=== PATIENT | female | born 1945 | race Caucasian/White ===

== ENCOUNTER 2017-09-14 16:32 | Observation (INO) | payer OTHER, BC ==
[~2017-09-14] VITALS: Ht 177.8 cm; Wt 99.2 kg
[2017-09-14] MEDS ORDERED: ONDANSETRON INJ 2 MG/ML 2 ML VIAL IV STA (17:04)
[2017-09-14] MEDS ORDERED: SODIUM CHLORIDE 0.9% 1000ML 1,000 ML IV STA ×2 (17:04)
[2017-09-14] MEDS ORDERED: FLUT0.15 NAE (17:15)
[2017-09-14] MEDS ORDERED: OPTIRAY 320 IV PRN (17:15)
[2017-09-14] MEDS ORDERED: AMLO10CA PO (17:15)
[2017-09-14] MEDS ORDERED: MELO7.5T6 PO (17:15)
[2017-09-14] MEDS ORDERED: ROSU40TA PO (17:15)
[2017-09-14] MEDS ORDERED: ASPI81TA28 PO (17:15)
[2017-09-14] MEDS ORDERED: ERGO50002 PO (17:15)
--- NOTE | 2017-09-14 17:31 | DIAGNOSTIC IMAGING REPORT ---
CHEST ONE VIEW PORTABLE HISTORY: 72 years-old Female EVALUATE ALTERED MENTAL STATUS/WEAKNESS acute altered mental status COMPARISON: None available TECHNIQUE: Portable AP view of the chest FINDINGS: Cardiac silhouette is moderately enlarged. Atherosclerosis of the aorta. No pneumothorax or large pleural effusion. Linear subsegmental bibasilar opacities are present, left greater than right. Bones of the chest appear grossly intact. There are degenerative changes of the spine and shoulders. IMPRESSION: 1. Cardiomegaly without overt pulmonary edema. 2. Linear subsegmental bibasilar opacities suggest atelectasis. The above report was generated using voice recognition software. It may contain grammatical, syntax or spelling errors. Electronically signed by: Fabio pSencer M.D. 09/14/2017 5:29 PM Dictated Date/Time: 09/14/2017 5:28 PM
[2017-09-14 17:43] LABS: BASO % 0.3 %; BASO ABS # 0.02 K/uL (0-0.2); COMPLETE YES; EOS % 1.3 %; HEMATOCRIT 43.6 % (37-47); IG% 0.1 %; LYMPH % 10.2 %; LYMPH ABS # 0.73 K/uL (1.2-3.4); MEAN CELL VOLUME 94.2 fL (80-100); MEAN CORPUSCULAR HEMOGLOBIN 30.9 pg (25-34); MEAN CORPUSCULAR HGB CONC 32.8 g/dl (32-36); MEAN PLATELET VOLUME 9.8 fL (7.4-10.4); MONO % 5.4 %; NEUT % 82.7 %; PLATELET COUNT 227 K/uL (130-400); RED BLOOD COUNT 4.63 M/uL (4.2-5.4); WHITE BLOOD COUNT 7.19 K/uL (4.8-10.8)
[2017-09-14 18:18] LABS: ALT/SGPT 26 U/L (12-78); AST/SGOT 20 U/L (15-37); BLOOD UREA NITROGEN 37 mg/dl (7-18); BUN/CREATININE RATIO 27.3 (10-20); CALCIUM 8.9 mg/dl (8.5-10.1); CARBON DIOXIDE 26 mmol/L (21-32); CHLORIDE 107 mmol/L (98-107); CREATININE 1.34 mg/dl (0.60-1.20); GLUCOSE 104 mg/dl (70-99); POTASSIUM 3.7 mmol/L (3.5-5.1); SODIUM 141 mmol/L (136-145)
[2017-09-14 18:23] LABS: ALKALINE PHOSPHATASE 72 U/L (45-117)
[2017-09-14 18:34] LABS: URINE APPEARANCE CLEAR (CLEAR); URINE BILIRUBIN NEG (NEG); URINE COLOR DK YELLOW; URINE NITRITE NEG (NEG); URINE SPECIFIC GRAVITY 1.024 (1.000-1.030); UROBILINOGEN NEG (NEG)
[2017-09-14 18:38] LABS: MANUAL MICROSCOPIC REQUIRED? NO; REVIEW REQ? NO
--- NOTE | 2017-09-14 19:14 | DIAGNOSTIC IMAGING REPORT ---
ABDOMEN AND PELVIS CT WITH IV CONTRAST CT DOSE: 785.14 mGy.cm HISTORY: Acute generalized abdominal pain abd pain TECHNIQUE: Multiaxial CT images of the abdomen and pelvis were performed following the use of intravenous contrast. A dose lowering technique was utilized adhering to the principles of ALARA. COMPARISON STUDY: None. FINDINGS: Mild subsegmental bibasilar atelectasis. Partially imaged consolidation of the inferior segment lingula is noted also suggesting atelectasis. There is no pneumatosis or pneumoperitoneum identified. Imaged inferior cardiac chambers are unremarkable with coronary arterial calcifications noted. The liver, spleen, pancreas, gallbladder and left adrenal gland are unremarkable. Indeterminate 3.7 x 2.4 x 3.6 cm mildly heterogeneous soft tissue attenuating lesion of the right adrenal gland is noted which is mildly hypoattenuating centrally. Kidneys, ureters and urinary bladder are unremarkable. Small cystocele. Prior hysterectomy. Moderate atherosclerosis of the aorta. No bulky adenopathy. 7 mm phlebolith is noted within the left hemipelvis in close proximity to the adjacent left ureter. No bowel obstruction. There is mild circumferential wall thickening of the rectum. Fluid-filled loops of rectum and sigmoid colon are noted with scattered air-fluid levels. There is also mild wall thickening of the transverse colon without significant surrounding inflammatory stranding. The appendix is not clearly seen. No secondary signs of acute appendicitis. There are multiple fat filled ventral abdominal wall hernias. Infraumbilical abdominal wall hernia contains mesenteric fat and nonobstructed loops of small bowel, diastases measuring up to 3.5 x 6.7 cm. Small fat filled right inguinal hernia. Soft tissues are unremarkable. Bones appear to be mildly demineralized. Multilevel advanced degenerative changes of the spine. Degenerative changes also noted within the bilateral hips, left greater than right. Lumbar spine levoscoliosis. IMPRESSION: 1. Mild wall thickening of the transverse colon and rectum suggests colitis. The colon is diffusely fluid-filled suggesting diarrheal state. 2. No bowel obstruction. 3. Indeterminate heterogeneous soft tissue attenuating mass of the right adrenal gland measures up to 3.7 cm. This could be further evaluated with a CT adrenal protocol study if clinically indicated. 4. Multiple fat filled ventral abdominal wall hernias with an infraumbilical fat filled hernia also containing nonobstructed small bowel. 5. Prior hysterectomy with small cystocele. Electronically signed by: Fabio Spencer M.D. 09/14/2017 7:13 PM Dictated Date/Time: 09/14/2017 7:02 PM
[2017-09-14 20:01] LABS: MAGNESIUM 2.6 mg/dl (1.8-2.4)
[2017-09-14 20:11] LABS: PARTIAL THROMBOPLASTIN RATIO 0.8
[2017-09-14] MEDS ORDERED: HYDROmorphone INJ 0.5 MG/0.5 ML SYR IV PRN (21:00)
[2017-09-14] MEDS ORDERED: PROCHLORPERAZINE INJ 5 MG in SYRINGE 4 ML IV PRN (21:00)
[2017-09-14] MEDS ORDERED: FLUTICASONE PROPIONATE NA SPR 16 GM BTL NAE PRN (21:00)
[2017-09-14] MEDS ORDERED: NITROGLYCERIN 0.4 MG SL PER TAB CHARGE SL PRN (21:00)
[2017-09-14] MEDS ORDERED: TRAMADOL HCL 50 MG TAB PO PRN (21:00)
--- NOTE | 2017-09-14 21:00 | DIAGNOSTIC IMAGING REPORT ---
HEAD WITHOUT CONTRAST (CT) CLINICAL HISTORY: 72 years-old Female with syncope. Acute syncope TECHNIQUE: Multiple axial CT images of the head were obtained without contrast. A dose lowering technique was utilized adhering to the principles of ALARA. CT DOSE: 537.48 mGy.cm COMPARISON: None. FINDINGS: No acute intracranial hemorrhage, midline shift, intracranial mass, hydrocephalus, territorial ischemia or abnormal extra-axial collection. Mild brain atrophy. Opacified venous sinuses and arterial structures from recent arterially enhanced CT of the abdomen and pelvis. Ill-defined areas of low-attenuation within the subcortical and periventricular white matter of the cerebral hemispheres bilaterally suggest chronic microvascular ischemic changes. The calvarium is intact. The paranasal sinuses, mastoid air cells, and middle ear cavities are clear. IMPRESSION: No acute intracranial abnormality. The above report was generated using voice recognition software. It may contain grammatical, syntax or spelling errors. Electronically signed by: Fabio Spencer M.D. 09/14/2017 8:58 PM Dictated Date/Time: 09/14/2017 8:57 PM
[2017-09-14] MEDS ORDERED: IV FLUIDS COMPLETED PRN (21:15)
[2017-09-14 21:59] LABS: PROTHROMBIN TIME (PATIENT) 10.7 SECONDS (9.0-12.0)
[2017-09-14] MEDS ORDERED: LACTATED RINGER'S 1000ML 1,000 ML IV ONE (22:00)
[2017-09-14 22:05] VITALS: BP 159/76; PULSE 68; TEMP 36.9; O2SAT 91
--- NOTE | 2017-09-14 22:09 | EMERGENCY ROOM VISIT NOTE ---
History Report prepared by Zack: Maryellen Lazo Under the Supervision of: Dr. Fabian Serrato D.O. First contact with patient: 16:51 Chief Complaint: DIZZY History of Present Illness The patient is a 72 year old who presents to the Emergency Room with complaints of weakness beginning shortly prior to arrival. The patient states that she went out to eat and ate dessert, and states that she has not been having sugar recently. She reports that she suddenly began to get nauseous and that she thought she was going to have to throw up. She reports that this is common for her and that she then felt better shortly after going to the bathroom. The patient states that she began to get stomach cramps and had blurry vision. She reports that she felt as if there were "pins and needles all over her." Per family, the patient passed out, then woke up, and stated that she felt better. The patient also reports vomiting and having diarrhea, but denies having incontinence. She also denies chest pain and shortness of breath before the syncopal episode. The patient reports having problems with blood pressure lately and also palpitations. Her family states that the patient has been having episodes of dizziness over the last month. The patient also reports a history of pneumonia and being placed on breathing treatments, but has been feeling more normal in the last couple of weeks. The patient denies a history of seizures. Source of History: patient, family Onset: shortly prior to arrival Position: other (global) Quality: other (weakness ) Associated Symptoms: + vomiting, + abdominal pain (stomach cramps), + diarrhea, No chest pain, No SOB Review of Systems See HPI for pertinent positives & negatives. A total of 10 systems reviewed and were otherwise negative. Past Medical & Surgical Medical Problems: (1) History of blood pressure problems (2) Pneumonia (3) Syncope Family History No pertinent family history stated. Social History Smoking Status: Never Smoker Marital Status: Current/Historical Medications Scheduled Amlodipine/Benazepril (Lotrel 10MG/20MG), 1 CAP PO DAILY Aspirin (Aspirin Ec), 81 MG PO QAM Ergocalciferol (Drisdol), 50,000 UNITS PO WK Meloxicam (Mobic), 7.5 MG PO DAILY Rosuvastatin Calcium (Crestor), 40 MG PO DAILY Scheduled PRN Fluticasone Propionate (Nasal) (Flonase Allergy Relief), 1 SPRAY RICCARDO DAILY PRN for ALLERGIES Allergies Coded Allergies: Morphine and Related (Verified Adverse Reaction, Intermediate, NAUSEA, VOMITING, 09/14/17) Physical Exam Vital Signs Date Time Temp Pulse Resp B/P (MAP) Pulse Ox O2 Delivery O2 Flow Rate FiO2 09/14/17 21:39 68 16 145/71 93 09/14/17 21:15 71 18 92 09/14/17 21:01 155/80 09/14/17 21:00 69 15 92 09/14/17 20:56 74 150/73 78 148/72 84 170/75 09/14/17 19:11 36.7 66 18 135/68 94 Room Air 09/14/17 18:16 62 09/14/17 17:44 36.7 68 18 129/63 95 Room Air 75 137/64 82 150/64 09/14/17 17:43 95 Room Air 09/14/17 16:55 74 18 118/69 90 Room Air Physical Exam GENERAL: Sitting up in bed, alert, well appearing, well nourished, no distress, non-toxic EYE EXAM: normal conjunctiva. OROPHARYNX: no exudate, no erythema, lips, buccal mucosa, and tongue normal and mucous membranes are moist NECK: supple, no nuchal rigidity, no adenopathy, non-tender LUNGS: Clear to auscultation. Normal chest wall mechanics HEART: no murmurs, S1 normal and S2 normal ABDOMEN: abdomen soft, non-tender, normo-active bowel sounds, no masses, no rebound or guarding. BACK: Back is symmetrical on inspection and there is no deformity, no midline tenderness, no CVA tenderness. SKIN: no rashes and no bruising UPPER EXTREMITIES: upper extremities are grossly normal. LOWER EXTREMITIES: No pitting edema. NEURO EXAM: Normal sensorium, cranial nerves II-XII intact, normal speech, no weakness of arms, no weakness of legs. No drift. Finger to nose intact. Gross sensation intact. Medical Decision & Procedures ER Provider Diagnostic Interpretation: Radiology results as stated below per my review and the radiologist's interpretation: CHEST ONE VIEW PORTABLE HISTORY: 72 years-old Female EVALUATE ALTERED MENTAL STATUS/WEAKNESS acute altered mental status COMPARISON: None available TECHNIQUE: Portable AP view of the chest FINDINGS: Cardiac silhouette is moderately enlarged. Atherosclerosis of the aorta. No pneumothorax or large pleural effusion. Linear subsegmental bibasilar opacities are present, left greater than right. Bones of the chest appear grossly intact. There are degenerative changes of the spine and shoulders. IMPRESSION: 1. Cardiomegaly without overt pulmonary edema. 2. Linear subsegmental bibasilar opacities suggest atelectasis. The above report was generated using voice recognition software. It may contain grammatical, syntax or spelling errors. Electronically signed by: Fabio Spencer M.D. 09/14/2017 5:29 PM Dictated Date/Time: 09/14/2017 5:28 PM ABDOMEN AND PELVIS CT WITH IV CONTRAST CT DOSE: 785.14 mGy.cm HISTORY: Acute generalized abdominal pain abd pain TECHNIQUE: Multiaxial CT images of the abdomen and pelvis were performed following the use of intravenous contrast. A dose lowering technique was utilized adhering to the principles of ALARA. COMPARISON STUDY: None. FINDINGS: Mild subsegmental bibasilar atelectasis. Partially imaged consolidation of the inferior segment lingula is noted also suggesting atelectasis. There is no pneumatosis or pneumoperitoneum identified. Imaged inferior cardiac chambers are unremarkable with coronary arterial calcifications noted. The liver, spleen, pancreas, gallbladder and left adrenal gland are unremarkable. Indeterminate 3.7 x 2.4 x 3.6 cm mildly heterogeneous soft tissue attenuating lesion of the right adrenal gland is noted which is mildly hypoattenuating centrally. Kidneys, ureters and urinary bladder are unremarkable. Small cystocele. Prior hysterectomy. Moderate atherosclerosis of the aorta. No bulky adenopathy. 7 mm phlebolith is noted within the left hemipelvis in close proximity to the adjacent left ureter. No bowel obstruction. There is mild circumferential wall thickening of the rectum. Fluid-filled loops of rectum and sigmoid colon are noted with scattered air-fluid levels. There is also mild wall thickening of the transverse colon without significant surrounding inflammatory stranding. The appendix is not clearly seen. No secondary signs of acute appendicitis. There are multiple fat filled ventral abdominal wall hernias. Infraumbilical abdominal wall hernia contains mesenteric fat and nonobstructed loops of small bowel, diastases measuring up to 3.5 x 6.7 cm. Small fat filled right inguinal hernia. Soft tissues are unremarkable. Bones appear to be mildly demineralized. Multilevel advanced degenerative changes of the spine. Degenerative changes also noted within the bilateral hips, left greater than right. Lumbar spine levoscoliosis. IMPRESSION: 1. Mild wall thickening of the transverse colon and rectum suggests colitis. The colon is diffusely fluid-filled suggesting diarrheal state. 2. No bowel obstruction. 3. Indeterminate heterogeneous soft tissue attenuating mass of the right adrenal gland measures up to 3.7 cm. This could be further evaluated with a CT adrenal protocol study if clinically indicated. 4. Multiple fat filled ventral abdominal wall hernias with an infraumbilical fat filled hernia also containing nonobstructed small bowel. 5. Prior hysterectomy with small cystocele. Electronically signed by: Fabio Spencer M.D. 09/14/2017 7:13 PM Dictated Date/Time: 09/14/2017 7:02 PM Laboratory Results 09/14/17 17:30 Red Blood Count 4.63, Mean Corpuscular Volume 94.2, Mean Corpuscular Hemoglobin 30.9, Mean Corpuscular Hemoglobin Concent 32.8, Mean Platelet Volume 9.8, Neutrophils (%) (Auto) 82.7, Lymphocytes (%) (Auto) 10.2, Monocytes (%) (Auto) 5.4, Eosinophils (%) (Auto) 1.3, Basophils (%) (Auto) 0.3, Neutrophils # (Auto) 5.95, Lymphocytes # (Auto) 0.73, Monocytes # (Auto) 0.39, Eosinophils # (Auto) 0.09, Basophils # (Auto) 0.02 09/14/17 17:30 Test 09/14/17 17:30 09/14/17 18:10 White Blood Count 7.19 K/uL (4.8-10.8) Red Blood Count 4.63 M/uL (4.2-5.4) Hemoglobin 14.3 g/dL (12.0-16.0) Hematocrit 43.6 % (37-47) Mean Corpuscular Volume 94.2 fL (80-100) Mean Corpuscular Hemoglobin 30.9 pg (25-34) Mean Corpuscular Hemoglobin Concent 32.8 g/dl (32-36) Platelet Count 227 K/uL (130-400) Mean Platelet Volume 9.8 fL (7.4-10.4) Neutrophils (%) (Auto) 82.7 % Lymphocytes (%) (Auto) 10.2 % Monocytes (%) (Auto) 5.4 % Eosinophils (%) (Auto) 1.3 % Basophils (%) (Auto) 0.3 % Neutrophils # (Auto) 5.95 K/uL (1.4-6.5) Lymphocytes # (Auto) 0.73 K/uL (1.2-3.4) Monocytes # (Auto) 0.39 K/uL (0.11-0.59) Eosinophils # (Auto) 0.09 K/uL (0-0.5) Basophils # (Auto) 0.02 K/uL (0-0.2) RDW Standard Deviation 46.3 fL (36.4-46.3) RDW Coefficient of Variation 13.3 % (11.5-14.5) Immature Granulocyte % (Auto) 0.1 % Immature Granulocyte # (Auto) 0.01 K/uL (0.00-0.02) Activated Partial Thromboplast Time 21.7 SECONDS (21.0-31.0) Partial Thromboplastin Ratio 0.8 Anion Gap 8.0 mmol/L (3-11) Est Creatinine Clear Calc Drug Dose 48.4 ml/min Estimated GFR () 45.4 Estimated GFR (Non- 39.2 BUN/Creatinine Ratio 27.3 (10-20) Calcium Level 8.9 mg/dl (8.5-10.1) Magnesium Level 2.6 mg/dl (1.8-2.4) Total Bilirubin 0.4 mg/dl (0.2-1) Direct Bilirubin < 0.1 mg/dl (0-0.2) Aspartate Amino Transf (AST/SGOT) 20 U/L (15-37) Alanine Aminotransferase (ALT/SGPT) 26 U/L (12-78) Alkaline Phosphatase 72 U/L (45-117) Troponin I < 0.015 ng/ml (0-0.045) Total Protein 6.6 gm/dl (6.4-8.2) Albumin 3.6 gm/dl (3.4-5.0) Thyroid Stimulating Hormone (TSH) 2.220 uIu/ml (0.300-4.500) Urine Color DK YELLOW Urine Appearance CLEAR (CLEAR) Urine pH 5.0 (4.5-7.5) Urine Specific [place] 1.024 (1.000-1.030) Urine Protein NEG (NEG) Urine Glucose (UA) NEG (NEG) Urine Ketones TRACE (NEG) Urine Occult Blood NEG (NEG) Urine Nitrite NEG (NEG) Urine Bilirubin NEG (NEG) Urine Urobilinogen NEG (NEG) Urine Leukocyte Esterase NEG (NEG) Laboratory results per my review. Medications Administered Medications (Trade) Dose Ordered Sig/Ap Route Start Time Stop Time Status Last Admin Dose Admin Sodium Chloride 1,000 ml @ 999 mls/hr Q1H1M STAT IV 09/14/17 17:04 09/14/17 18:04 DC 09/14/17 17:56 999 MLS/HR Ondansetron HCl (Zofran Inj) 4 mg NOW STAT IV 09/14/17 17:04 09/14/17 17:06 DC 09/14/17 17:55 4 MG ECG Indication: weakness Rate (beats per minute): 70 Rhythm: sinus rhythm Findings: T-wave inversion (Lateral and high lateral ), other (normal axis, non -specific ST wave changes in lateral lead ) ED Course ED COURSE: Vital signs were reviewed and showed hypertension. The patients medical record was reviewed The above diagnostic studies were performed and reviewed. ED treatments and interventions as stated above. 1656: The patient was evaluated in room B5. A complete history and physical examination was performed. 1704:Ordered Sodium Chloride 1,000 ml @ 999 mls/hr IV, Zofran Inj 4 mg IV, Sodium Chloride 1,000 ml @ 999 mls/hr IV. 1905: I reassessed the patient and she is asymptomatic. 7: Upon reevaluation, the patient is resting. I discussed the findings and the treatment plan with the patient. She expresses agreement and understanding. I spoke with Dr. Alfonso of the [facility]. She will be evaluated for further management. Medical Decision Differential diagnosis includes etiologies such as vasovagal event, infection, hypoglycemia, electrolyte abnormalities, cardiac sources, intracerebral event, toxicologic, neurologic, as well as others were entertained. Patient is a 72-year-old female who presents to ER for syncopal episode. This initially started with abdominal pain cramping and nausea. Following this she passed out. She denies any chest pain or shortness of breath. There is no seizure activity. She is neurologically intact on my exam. When she presents to the ER she had diarrhea vomiting and cramping. She passed out again. EKG shows ST wave changes and flipped T waves in the lateral/bilateral. No old to compare to. Troponin was negative. Patient family were updated at bedside. Patient family were updated bedside. She is a minute with security, EKG changes and colitis. Medication Reconcilliation Current Medication List: was personally reviewed by me Blood Pressure Screening Patient's blood pressure: Elevated blood pressure Blood pressure disposition: Referred to PCP (will be evaluated by hospitalist ) Consults Time Called: [phone] Consulting Physician: Dr. Chung Returned Call: [phone] I reviewed the patient's case with Dr. Alfonso. He will evaluate the patient for further management. Impression Primary Impression: Syncope Additional Impressions: Acute electrocardiogram changes Colitis Scribe Attestation The scribe's documentation has been prepared under my direction and personally reviewed by me in its entirety. I confirm that the note above accurately reflects all work, treatment, procedures, and medical decision making performed by me. Departure Information Dispostion Being Evaluated By Hospitalist Patient Instructions My [facility] Problem Qualifiers Primary Impression: Syncope Syncope type: unspecified Qualified Codes: R55 - Syncope and collapse
[2017-09-14] MEDS ORDERED: AMLODIPINE BESYLATE 5 MG TAB PO ONE (22:32)
--- NOTE | 2017-09-14 22:33 | HISTORY & PHYSICAL EXAMINATION ---
DATE OF ADMISSION: 09/14/2017 PRIMARY CARE PHYSICIAN: Dr. Crouch from [place], [place]. CHIEF COMPLAINT: Syncope. HISTORY OF PRESENT ILLNESS: History obtained from the patient, family, ER provider. Medical history significant for hypertension, hyperlipidemia, LITO on CPAP Patient traveled from [facility] to [place] to drop off grandson in college with daughter. This morning px noted abdominal discomfort, cramping, had some nausea, no vomiting, loose stools noted. Patient also felt lightheaded, dizzy. No chest pain, no shortness of breath, no headache. Witnessed syncopal event for about 45 seconds by daughter in the car. No seizures, no incontinence. No previous episodes in the past. Recent antibiotic intake last month for some URTI. Emesis, multiple nonbloody bowel movements at the ER. MEDICAL HISTORY: As above. SURGERIES: Bowel surgery, hysterectomy, appendectomy. HOME MEDICATIONS: Include aspirin, Lotrel, Drisdol, Flonase, Mobic, Crestor. ALLERGIES: MORPHINE. FAMILY HISTORY: Heart disease. PERSONAL SOCIAL HISTORY: Nonsmoker, no chronic intake of alcoholic beverages. Retired teacher. REVIEW OF SYSTEMS: As per HPI. All 10 systems reviewed. All other ROS negative. PHYSICAL EXAMINATION: VITAL SIGNS: Blood pressure was noted to be 135/68, pulse rate 80, RR 18, temperature 36.7, sats 94 on room air. Orthostatic vitals were negative. GENERAL: Noted to be obese, slightly uncomfortable, no respiratory distress. SKIN: Normal color. Warm. HEENT: [place] palpebral conjuctivae. No ptosis. Dry buccal mucosa. NECK: Short neck. No tenderness. CHEST: Clear to auscultate. No tenderness. HEART: RRR, no murmur. ABDOMEN: Soft, nontender, some distention. EXTREMITIES: No LE edema. No tenderness. No gross deformity. NEUROLOGIC: Coherent. No gross focality. LABORATORY STUDIES: Hemoglobin 14.8, hematocrit 42.6, white cell count 7.99, platelets 227. Sodium 139, potassium 3.7, chloride 107, CO2 26, BUN 37, creatinine 1.34. Glucose was noted to be 104. Troponin noted to be 0.015 trace ketones in the UA. CT head, no acute pathology. CT abdomen and pelvis showed mild wall thickening transverse colon, colitis , right adrenal gland soft tissue attenuating mass measuring 2.7 cm, fat filled ventral abdominal wall hernia, prior hysterectomy. Chest x-ray showed cardiomegaly, atelectasis. EKG as per my interpretation, rate 70, normal sinus rhythm, some T-wave inversion/ and flattening in the lateral leads. ASSESSMENT: 1. Syncope likely vasovagal from abdominal pain 2 to colitis rule out Clostridium difficile. Recent antibiotic intake. No sepsis. Rule out cardiac dysfunction as cause of syncope. 2. Acute renal failure secondary to GI illness. 3. Hypertension, stable. 4. Abnormal R adrenal on CT 5. LITO on CPAP PLAN: Observation PCU 2D echo RE syncope. Monitor creatinine response to IV fluids. Hold home RENATA inhibitor, NSAIDs for now until creatinine at baseline. Stool C. difficile Dedicated outpatient CT adrenal study. DVT prophylaxis, Heparin subQ. Full code. Patient's daughter requesting for updates from providers. Miss Savannah Garduno at . MTDD
[2017-09-14] MEDS: FLUTICASONE PROPIONATE NA SPR 16 GM BTL NAE SCH (22:54)
[2017-09-15] VITALS (12 sets, daily range): BP systolic 137–181; BP diastolic 65–81; PULSE 77–104; TEMP 36.7–37.7; O2SAT 90–92; Ht 177.8 cm; Wt 99.2 kg
[2017-09-15] MEDS ORDERED: LACTATED RINGER'S 1000ML 1,000 ML IV STA ×2 (00:46→03:40)
[2017-09-15] MEDS ORDERED: POTASSIUM CHLORIDE 10 MEQ TABCR PO STA (00:49)
[2017-09-15 01:50] LABS: BASO % 0.2 %; BASO ABS # 0.02 K/uL (0-0.2); COMPLETE YES; EOS % 0.3 %; HEMATOCRIT 40.8 % (37-47); IG% 0.1 %; LYMPH % 7.3 %; LYMPH ABS # 0.71 K/uL (1.2-3.4); MEAN CELL VOLUME 93.8 fL (80-100); MEAN CORPUSCULAR HEMOGLOBIN 30.6 pg (25-34); MEAN CORPUSCULAR HGB CONC 32.6 g/dl (32-36); MEAN PLATELET VOLUME 9.6 fL (7.4-10.4); MONO % 5.1 %; PLATELET COUNT 232 K/uL (130-400); RED BLOOD COUNT 4.35 M/uL (4.2-5.4); WHITE BLOOD COUNT 9.75 K/uL (4.8-10.8)
--- NOTE | 2017-09-15 01:50 | Progress Note ---
Internal Med Progress Note Date of Service: Sep 15, 2017. Provider Documentation: Made aware by RN of episodic rapid atrial flutter/ bradycardia on the monitor CR 40s-140s Patient complaining of palpitations, dry heaving. AP ? SSS Cardio consult in a.m. Will relay to AM provider. Vital Signs: Date Time Temp Pulse Resp B/P (MAP) Pulse Ox O2 Delivery O2 Flow Rate FiO2 09/15/17 07:24 37.2 92 18 151/74 (99) 91 Room Air 98 148/77 (100) 104 151/80 (103) 09/15/17 04:17 36.8 102 22 144/77 (99) 92 Room Air 09/15/17 04:00 Room Air 09/15/17 01:25 Room Air 09/15/17 00:52 137/68 (91) 09/15/17 00:00 147/78 (101) 149/77 (101) 160/74 (102) 09/14/17 22:05 36.9 68 18 159/76 (103) 91 Room Air 09/14/17 21:39 68 16 145/71 93 09/14/17 21:15 71 18 92 09/14/17 21:01 155/80 09/14/17 21:00 69 15 92 09/14/17 20:56 74 150/73 78 148/72 84 170/75 09/14/17 19:11 36.7 66 18 135/68 94 Room Air 09/14/17 18:16 62 09/14/17 17:44 36.7 68 18 129/63 95 Room Air 75 137/64 82 150/64 09/14/17 17:43 95 Room Air 09/14/17 16:55 74 18 118/69 90 Room Air Lab Results: Results Past 24 Hours Test 09/14/17 17:24 09/14/17 17:30 09/14/17 18:10 09/15/17 01:39 Range/Units Bedside Glucose 95 70-90 mg/dl White Blood Count 7.19 9.75 4.8-10.8 K/uL Red Blood Count 4.63 4.35 4.2-5.4 M/uL Hemoglobin 14.3 13.3 12.0-16.0 g/dL Hematocrit 43.6 40.8 37-47 % Mean Corpuscular Volume 94.2 93.8 80-100 fL Mean Corpuscular Hemoglobin 30.9 30.6 25-34 pg Mean Corpuscular Hemoglobin Concent 32.8 32.6 32-36 g/dl Platelet Count 227 232 130-400 K/uL Mean Platelet Volume 9.8 9.6 7.4-10.4 fL Neutrophils (%) (Auto) 82.7 87.0 % Lymphocytes (%) (Auto) 10.2 7.3 % Monocytes (%) (Auto) 5.4 5.1 % Eosinophils (%) (Auto) 1.3 0.3 % Basophils (%) (Auto) 0.3 0.2 % Neutrophils # (Auto) 5.95 8.48 1.4-6.5 K/uL Lymphocytes # (Auto) 0.73 0.71 1.2-3.4 K/uL Monocytes # (Auto) 0.39 0.50 0.11-0.59 K/uL Eosinophils # (Auto) 0.09 0.03 0-0.5 K/uL Basophils # (Auto) 0.02 0.02 0-0.2 K/uL RDW Standard Deviation 46.3 46.3 36.4-46.3 fL RDW Coefficient of Variation 13.3 13.4 11.5-14.5 % Immature Granulocyte % (Auto) 0.1 0.1 % Immature Granulocyte # (Auto) 0.01 0.01 0.00-0.02 K/uL Prothrombin Time 10.7 9.0-12.0 SECONDS Prothromb Time International Ratio 1.0 0.9-1.1 Activated Partial Thromboplast Time 21.7 22.4 21.0-31.0 SECONDS Partial Thromboplastin Ratio 0.8 0.9 Sodium Level 141 142 136-145 mmol/L Potassium Level 3.7 3.4 3.5-5.1 mmol/L Chloride Level 107 110 98-107 mmol/L Carbon Dioxide Level 26 23 21-32 mmol/L Anion Gap 8.0 9.0 3-11 mmol/L Blood Urea Nitrogen 37 27 7-18 mg/dl Creatinine 1.34 0.89 0.60-1.20 mg/dl Est Creatinine Clear Calc Drug Dose 48.4 72.9 ml/min Estimated GFR () 45.4 74.5 Estimated GFR (Non- 39.2 64.3 BUN/Creatinine Ratio 27.3 30.8 10-20 Random Glucose 104 120 70-99 mg/dl Calcium Level 8.9 8.7 8.5-10.1 mg/dl Magnesium Level 2.6 2.3 1.8-2.4 mg/dl Total Bilirubin 0.4 0.2-1 mg/dl Direct Bilirubin < 0.1 0-0.2 mg/dl Aspartate Amino Transf (AST/SGOT) 20 15-37 U/L Alanine Aminotransferase (ALT/SGPT) 26 12-78 U/L Alkaline Phosphatase 72 45-117 U/L Troponin I < 0.015 < 0.015 0-0.045 ng/ml Total Protein 6.6 6.4-8.2 gm/dl Albumin 3.6 3.4-5.0 gm/dl Thyroid Stimulating Hormone (TSH) 2.220 0.300-4.500 uIu/ml Urine Color DK YELLOW Urine Appearance CLEAR CLEAR Urine pH 5.0 4.5-7.5 Urine Specific [place] 1.024 1.000-1.030 Urine Protein NEG NEG Urine Glucose (UA) NEG NEG Urine Ketones TRACE NEG Urine Occult Blood NEG NEG Urine Nitrite NEG NEG Urine Bilirubin NEG NEG Urine Urobilinogen NEG NEG Urine Leukocyte Esterase NEG NEG Microbiology Results 09/15/17 Shiga Toxin Test, Hillary Batch Pending 09/15/17 Stool Culture, Hillary Batch Pending 09/14/17 C.difficile Toxin B Gene (PCR) - Final, Complete No C. difficile toxin B gene detected
[2017-09-15] MEDS: POTASSIUM CHLR 10 MEQ / WTR 10 MEQ in PREMIXED WATER 100 ML IV SCH ×6 (02:05→08:04)
[2017-09-15 02:08] LABS: PARTIAL THROMBOPLASTIN RATIO 0.9
[2017-09-15 02:43] LABS: BLOOD UREA NITROGEN 27 mg/dl (7-18); BUN/CREATININE RATIO 30.8 (10-20); CALCIUM 8.7 mg/dl (8.5-10.1); CARBON DIOXIDE 23 mmol/L (21-32); CHLORIDE 110 mmol/L (98-107); CREATININE 0.89 mg/dl (0.60-1.20); GLUCOSE 120 mg/dl (70-99); MAGNESIUM 2.3 mg/dl (1.8-2.4); POTASSIUM 3.4 mmol/L (3.5-5.1); SODIUM 142 mmol/L (136-145)
[2017-09-15] MEDS ORDERED: LOPERAMIDE HCL 2 MG CAP PO PRN (03:45)
[2017-09-15] MEDS ORDERED: LACTATED RINGER'S 1000ML 1,000 ML IV SCH ×2 (04:00→06:00)
[2017-09-15] MEDS: LACTATED RINGER'S 1000ML 1,000 ML IV SCH ×2 (05:26→14:15)
[2017-09-15] MEDS: HEPARIN SOD 5000 UNIT/0.5 ML CARP SQ SCH ×2 (05:34→12:24)
[2017-09-15] MEDS: FLUTICASONE PROPIONATE NA SPR 16 GM BTL NAE SCH ×2 (08:04→21:11)
[2017-09-15] MEDS: LACTOBACILLUS ACIDOPHILUS (FLORANEX) TAB PO SCH ×5 (08:07→21:00)
[2017-09-15] MEDS ORDERED: AMLODIPINE BESYLATE 5 MG TAB PO SCH ×4 (09:00→21:00)
[2017-09-15] MEDS ORDERED: ROSUVASTATIN CALCIUM 20 MG TAB PO SCH ×2 (09:00→21:00)
[2017-09-15] MEDS ORDERED: ASPIRIN 81 MG ECTAB PO SCH (09:00)
[2017-09-15] MEDS ORDERED: ENALAPRIL MALEATE 10 MG TAB PO SCH ×2 (09:00→21:00)
--- NOTE | 2017-09-15 09:00 | ECHOCARDIOGRAM REPORT ---
*NOTICE TO RECEIVING CONSTITUTION PARTY AGENCY This information is strictly Confidential and protected under [place] law. [place] law prohibits you from making any further disclosure of this information unless further disclosure is expressly permitted by the written consent of the person to whom it pertains or is authorized by law. A general authorization for the release of medical or other information is not sufficient for this purpose. Hospital accepts no responsibility if the information is made available to any other person, INCLUDING THE PATIENT. Interpretation Summary * Name: RADHA INTERIANO Study Date: 09/15/2017 07:37 AM BP: 144/77 mmHg * Patient Location: [facility] HR: 102 * : 1945 (M/d/yyyy) Gender: Female Height: 70 in * Age: 72 yrs Ethnicity: [place] Weight: 225 lb * Ordering Physician: Ashutosh Alfonso * Performed By: Dodie Wolfe RDCS * * Reason For Study: SYNCOPE * BSA: 2.2 m2 * -- Conclusions -- * The left ventricular cavity is small. * There is moderate concentric left ventricular hypertrophy. * The left ventricle is hyperdynamic. * The left ventricular wall motion is normal. * Ejection Fraction = >70 %. * Aortic valve sclerosis moderate, without significant aortic valvular stenosis. * There is mild mitral annular calcification. * There is trace mitral regurgitation. Procedure Details * A complete two-dimensional transthoracic echocardiogram was performed (2D, M-mode, Doppler and color flow Doppler). * A contrast injection of Definity was performed to improve assessment of LV function. * Contrast was injected into an intravenous site in the right arm. * One vial of Definity ultrasound contrast was diluted in normal saline to a total volume of 10 ml. A total of '2' ml of solution was administered during imaging. * Lot # [id number] of Definity utilized for procedure. * Expiration date 11/21. * The attending nurse who injected the contrast agent was graeme rao RN. Left Ventricle * The left ventricular cavity is small. * There is moderate concentric left ventricular hypertrophy. * Ejection Fraction = >70 %. * The left ventricle is hyperdynamic. * The left ventricular wall motion is normal. Right Ventricle * The right ventricle is normal in size and function. Atria * The left atrial size is normal. * Right atrial size is normal. * No ASD detected; PFO is not assessed. Mitral Valve * There is mild mitral annular calcification. * There is no mitral valve stenosis. * There is trace mitral regurgitation. Tricuspid Valve * The tricuspid valve anatomy is normal. * There is no tricuspid stenosis. * There is trace tricuspid regurgitation. * Doppler findings do not suggest pulmonary hypertension. Aortic Valve * The aortic valve is trileaflet. * Aortic valve sclerosis moderate, without significant aortic valvular stenosis. * No aortic regurgitation is present. Pulmonic Valve * The pulmonic valve is not well visualized. Great Vessels * The aortic root is normal size. Pericardium/Pleural * There is no pericardial effusion. Great Vessels * Normal inferior vena cava diameter and respiratory variation suggests normal central venous pressure. Left Ventricular Diastolic Function * Grade I diastolic dysfunction, (abnormal relaxation pattern). * Diastolic dysfunction, Grade II (pseudonormalization pattern). MMode 2D Measurements and Calculations IVSd 1.1 cm IVSs 1.7 cm LVIDd 4.7 cm LVIDs 2.7 cm LVPWd 1.0 cm LVPWs 1.8 cm IVS/LVPW 1.1 FS 41.3 % EDV(Teich) 101.2 ml ESV(Teich) 28.2 ml EF(Teich) 72.2 % EDV(cubed) 102.4 ml ESV(cubed) 20.7 ml EF(cubed) 79.8 % % IVS thick 52.4 % % LVPW thick 70.2 % LV mass(C)d 181.2 grams LV mass(C)dI 82.6 grams/m\S\2 LV mass(C)s 183.6 grams LV mass(C)sI 83.6 grams/m\S\2 SV(Teich) 73.1 ml SI(Teich) 33.3 ml/m\S\2 SV(cubed) 81.7 ml SI(cubed) 37.2 ml/m\S\2 ACS 1.4 cm asc Aorta Diam 3.2 cm LVAd ap4 20.1 cm\S\2 LVLd ap4 6.8 cm EDV(MOD-sp4) 48.1 ml EDV(sp4-el) 50.4 ml LVAs ap4 9.8 cm\S\2 LVLs ap4 5.5 cm ESV(MOD-sp4) 14.7 ml ESV(sp4-el) 14.8 ml EF(MOD-sp4) 69.4 % EF(sp4-el) 70.6 % LVAd ap2 25.8 cm\S\2 LVLd ap2 6.6 cm EDV(MOD-sp2) 83.0 ml EDV(sp2-el) 85.6 ml LVAs ap2 12.6 cm\S\2 LVLs ap2 5.5 cm ESV(MOD-sp2) 24.5 ml ESV(sp2-el) 24.6 ml EF(MOD-sp2) 70.5 % EF(sp2-el) 71.3 % LVLd %diff -3.21 % EDV(MOD-bp) 64.5 ml LVLs %diff -0.86 % ESV(MOD-bp) 19.2 ml EF(MOD-bp) 70.2 % SV(MOD-sp4) 33.4 ml SI(MOD-sp4) 15.2 ml/m\S\2 SV(MOD-sp2) 58.6 ml SI(MOD-sp2) 26.7 ml/m\S\2 SV(MOD-bp) 45.2 ml SI(MOD-bp) 20.6 ml/m\S\2 SV(sp4-el) 35.6 ml SI(sp4-el) 16.2 ml/m\S\2 SV(sp2-el) 61.0 ml SI(sp2-el) 27.8 ml/m\S\2 Doppler Measurements and Calculations MV E max brayden 77.1 cm/sec MV A max brayden 65.1 cm/sec MV E/A 1.2 MV dec time 0.23 sec Ao V2 max 137.2 cm/sec Ao max PG 7.5 mmHg Ao max PG (full) 0.59 mmHg LV V1 max PG 6.9 mmHg LV V1 max 131.7 cm/sec PA V2 max 112.7 cm/sec PA max PG 5.1 mmHg TR max brayden 262.3 cm/sec
--- NOTE | 2017-09-15 11:35 | Cardiology Consultation ---
Cardiology Consultation Date of Consultation: Sep 15, 2017 Requesting Physician: Kaden Attending Inserting Machine Operator: González Cox (Frank King PA-C) History of Present Illness Mrs. Yary Beard is a 72 year old female from [place], [place] who traveled to [place] with her daughter to parts picker her grandson, a student at [employer], for Deyvi break. She notes that her grandson was taking a test and packing so they went to the [employer] and ate the buffet. She notes overeating. After leaving the [employer] she went to her grandsons dorm where she developed nausea and "cramping in the intestines." She describes having a normal bowel movement, not diarrhea, at the dorm and feeling some better. A few minutes later she developed nausea and the urge to have another bowel movement. She notes making it from the dorm to the [facility], developing tingling all over , fuzziness sensation in the head, decreased vision, lightheadedness, dizziness , and diaphoresis. She notes that her daughter said she looked like a rag doll. She notes opening the window, daughter and grandson apparently witnessing her eyes rolling back in her head and 40-45 seconds of syncope. She notes no recollection of the syncope. The patient was then brought to the [facility] Emergency Room where she was evaluated by Dr. Serrato. She notes, while in the ER, developing nausea, vomiting, and diarrhea with improvement in her presenting symptoms. She was given IVF and 4 mg IV Zofran with improvement. Last night she had a couple more bouts of nausea, vomiting, and diarrhea. She notes feelingg as though she needed more liquids throughout the night. EKG on presentation revealed normal sinus rhythm at [address]-T wave abnormality suggestive of ischemia versus left ventricular hypertrophy. QT/ QTc: 418/451 ms. EKG this morning revealed normal sinus rhythm at 75 bpm with more pronounced ST-T wave changes laterally. Continuous telemetry monitoring overnight was notable for an episode of paroxysmal atrial fibrillation with a rapid ventricular response (up to 150 bpm) , spontaneously converting back to sinus without pause. No significant bradycardia observed on my review and after discussion with the monitor technicians. The patient notes being followed by Dr. Mike Pickens, Inserting Machine Operator. She describes undergoing diagnostic cardiac catheterization in [place] 12 or 13 years ago with normal coronary arteries reported. She describes paroxysmal episodes of palpitations for which she takes as needed propranolol. Over the last two weeks she has taking short acting propranolol once in the afternoon to aid in hypertension after she self reduced Lotrel which was increased a few weeks ago from 10-20 to 10-40 for additional blood pressure control. She describes undergoing EKG's, ambulatory EKG's, and stress testing recently without significant abnormality observed, per patient report. No documentation from her manufacturing quality inspector is available for review at this time. She feels considerably better this morning. She notes feeling palpitations and dizziness when she was informed of the episode of PAF. No chest pain. Stable shortness of breath. No fluid retention in the lower extremities. No orthopnea or PND. No prior syncope spells. (Frank King PA-C) Past Medical/Surgical History Problem List: Hypertension Hypertensive heart disease Paroxysmal atrial fibrillation Dyslipidemia Obstructive sleep apnea Partial hysterectomy Partial colectomy Tonsillectomy Appendectomy. Bilateral knee injections (Frank King PA-C) Family History Mother had CAD, undergoing CABG in her 60's. She passed in her 80's following a CVA. Father had leukemia, passing at 73 with an [place]. One brother with atrial fibrillation. One brother young with "complications from diabetes after eating a lot of candy." (Frank King PA-C) Social History Nonsmoker. Rare alcohol, wine. No illegal drug use. . One daughter. Lives in [place], [place]. (Frank King PA-C) Review Of Systems General: URI in July. Pneumonia in August. No current fever or chills. Fibromyalgia. [place] funny, near syncopal on Lotrel 10-40, self reducing the dose back to 10-20 about two weeks ago. Propranolol self dosing as detailed above. HEENT: Headaches. No head trauma. Cardiovascular: See above. Pulmonary: See above. No hemoptysis. Gastrointestinal: See above. Skin: No rash. Musculoskeletal: On Mobic. Fibromyalgia. Bilateral knee pain, receiving cortisone injections bilaterally. Neurological: Denies history of TIA, CVA, or seizures (Frank King PA-C) Allergies Coded Allergies: Morphine and Related (Verified Adverse Reaction, Intermediate, NAUSEA, VOMITING, 09/14/17) Medications Reported Home Medications Medications Dose Route/Sig Max Daily Dose Days Date Category Dose Instructions Drisdol (Ergocalciferol) 50,000 Unit Cap 50,000 Units PO WK 09/14/17 Reported SUNDAYS Flonase Allergy Relief (Fluticasone Propionate (Nasal)) 50 Mcg/Act Spr 1 [place] RICCARDO DAILY PRN 09/14/17 Reported Aspirin Ec (Aspirin) 81 Mg Tab 81 Mg PO QAM 09/14/17 Reported Mobic (Meloxicam) 7.5 Mg Tab 7.5 Mg PO DAILY 09/14/17 Reported Crestor (Rosuvastatin Calcium) 40 Mg Tab 40 Mg PO DAILY 09/14/17 Reported Lotrel 10MG/20MG (Amlodipine/Benazepril HCl) 10 Mg/20 Mg Cap 1 Cap PO DAILY 09/14/17 Reported (Frank King PA-C) Physical Exam Vital Signs (Last 8hrs): Last 8 Hrs Date Time Temp Pulse Resp B/P (MAP) Pulse Ox O2 Delivery O2 Flow Rate FiO2 09/15/17 08:00 91 Room Air 09/15/17 07:24 37.2 92 18 151/74 (99) 91 Room Air 98 148/77 (100) 104 151/80 (103) 09/15/17 04:17 36.8 102 22 144/77 (99) 92 Room Air 09/15/17 04:00 Room Air General Appearance: Alert and Oriented x3. NAD. HEENT: Normocephalic Atraumatic. PER, EOMI, Conjunctiva and sclera clear Neck: Supple. No carotid bruits noted. Neck veins are flat. No HJD. Respiratory: Breath sounds clear to auscultation bilaterally. No wheezes, rales , or rhonchi. Cardiovascular: RRR, 78 bpm. Soft systolic murmur. No diastolic murmur. No rub. No gallop. PMI was not palpated. Abdomen: +BS. Soft. Nontender. No abdominal bruits. Extremities: No edema. No clubbing. No cyanosis. Distal pulses are 2/4 on the left, 1/4 on the right (dorsalis pedis). Neuro: No focal deficits. Psychiatric: Normal affect. (Frank King PA-C) Data Last 24 Hours Test 09/14/17 17:24 09/14/17 17:30 09/14/17 18:10 09/15/17 01:39 Bedside Glucose 95 mg/dl White Blood Count 7.19 K/uL 9.75 K/uL Red Blood Count 4.63 M/uL 4.35 M/uL Hemoglobin 14.3 g/dL 13.3 g/dL Hematocrit 43.6 % 40.8 % Mean Corpuscular Volume 94.2 fL 93.8 fL Mean Corpuscular Hemoglobin 30.9 pg 30.6 pg Mean Corpuscular Hemoglobin Concent 32.8 g/dl 32.6 g/dl Platelet Count 227 K/uL 232 K/uL Mean Platelet Volume 9.8 fL 9.6 fL Neutrophils (%) (Auto) 82.7 % 87.0 % Lymphocytes (%) (Auto) 10.2 % 7.3 % Monocytes (%) (Auto) 5.4 % 5.1 % Eosinophils (%) (Auto) 1.3 % 0.3 % Basophils (%) (Auto) 0.3 % 0.2 % Neutrophils # (Auto) 5.95 K/uL 8.48 K/uL Lymphocytes # (Auto) 0.73 K/uL 0.71 K/uL Monocytes # (Auto) 0.39 K/uL 0.50 K/uL Eosinophils # (Auto) 0.09 K/uL 0.03 K/uL Basophils # (Auto) 0.02 K/uL 0.02 K/uL RDW Standard Deviation 46.3 fL 46.3 fL RDW Coefficient of Variation 13.3 % 13.4 % Immature Granulocyte % (Auto) 0.1 % 0.1 % Immature Granulocyte # (Auto) 0.01 K/uL 0.01 K/uL Prothrombin Time 10.7 SECONDS Prothromb Time International Ratio 1.0 Activated Partial Thromboplast Time 21.7 SECONDS 22.4 SECONDS Partial Thromboplastin Ratio 0.8 0.9 Sodium Level 141 mmol/L 142 mmol/L Potassium Level 3.7 mmol/L 3.4 mmol/L Chloride Level 107 mmol/L 110 mmol/L Carbon Dioxide Level 26 mmol/L 23 mmol/L Anion Gap 8.0 mmol/L 9.0 mmol/L Blood Urea Nitrogen 37 mg/dl 27 mg/dl Creatinine 1.34 mg/dl 0.89 mg/dl Est Creatinine Clear Calc Drug Dose 48.4 ml/min 72.9 ml/min Estimated GFR () 45.4 74.5 Estimated GFR (Non- 39.2 64.3 BUN/Creatinine Ratio 27.3 30.8 Random Glucose 104 mg/dl 120 mg/dl Calcium Level 8.9 mg/dl 8.7 mg/dl Magnesium Level 2.6 mg/dl 2.3 mg/dl Total Bilirubin 0.4 mg/dl Direct Bilirubin < 0.1 mg/dl Aspartate Amino Transf (AST/SGOT) 20 U/L Alanine Aminotransferase (ALT/SGPT) 26 U/L Alkaline Phosphatase 72 U/L Troponin I < 0.015 ng/ml < 0.015 ng/ml Total Protein 6.6 gm/dl Albumin 3.6 gm/dl Thyroid Stimulating Hormone (TSH) 2.220 uIu/ml Urine Color DK YELLOW Urine Appearance CLEAR Urine pH 5.0 Urine Specific [place] 1.024 Urine Protein NEG Urine Glucose (UA) NEG Urine Ketones TRACE Urine Occult Blood NEG Urine Nitrite NEG Urine Bilirubin NEG Urine Urobilinogen NEG Urine Leukocyte Esterase NEG Admission CXR: Cardiomegaly without overt pulmonary edema. Linear subsegmental bibasilar opacities suggest atelectasis Head CT on presentation showed no acute intracranial abnormality as per Dr. pSencer. CT of the abdomen and pelvis revealed mild wall thickening of the transverse colon and rectum suggests colitis. The colon is diffusely fluid-filled suggesting diarrheal state. No bowel obstruction. Indeterminate heterogeneous soft tissue attenuating mass of the right adrenal gland measures up to 3.7 cm. This could be further evaluated with a CT adrenal protocol study if clinically indicated. Multiple fat filled ventral abdominal wall hernias with an infraumbilical fat filled hernia also containing nonobstructed small bowel. Prior hysterectomy with small cystocele. Interpretation as per Dr. Johanna M.D. EKG: See above. Telemetry: Sinus initially, currently sinus at 84 bpm. PAF with a RVR overnight ; no conversion pause. No significant bradycardia or pauses. September 15, 2017 TTE Interpretation Summary ([facility], Dr. Cox): The left ventricular cavity is small. There is moderate concentric left ventricular hypertrophy. The left ventricle is hyperdynamic. The left ventricular wall motion is normal. Ejection Fraction = >70 %. Aortic valve sclerosis moderate, without significant aortic valvular stenosis. There is mild mitral annular calcification. There is trace mitral regurgitation. (Frank King PA-C) Assessment & Plan 72 year old female admitted with a probable foodborne illness versus viral gastroenteritis, resultant syncope spell highly suggestive of vasovagal syncope. Continuous telemetry monitoring notable for a mildly symptomatic episode of paroxysmal atrial fibrillation with a rapid ventricular response, spontaneously converting back to sinus without overt clinical sequela. Blood pressures have become hypertensive with improvement in her clinical condition, echocardiography demonstrating moderate concentric left ventricular hypertrophy with the ventricle noted to be small and with hyperdynamic function. Agree with fluid resuscitation, supplementing potassium. Recommend discontinuation of propranolol, utilizing Toprol XL starting at 25 mg/day. Amlodipine and benazepril will need to be resumed for blood pressure once over the acute illness. Patient advised to follow-up with her outpatient Inserting Machine Operator shortly after discharge, considering further evaluation and treatment as well as initiation of anticoagulation (CHADS2 Score 2/6, [id number] Score: 3 points). Further recommendations pending the above, evaluation by Dr. Cox, and her ongoing hospitalization. (Frank King PA-C) Patient seen and examined. Assessment as above. Patient admitted after syncopal event beginning initially with GI upset after a heavy meal. Symptoms and description very consistent with vasovagal syncope. Incidentally observed to have paroxysmal atrial fibrillation on overnight telemetry (off cpap) Echo normal to hyperdynamic LV function with LVH. Discussed findings as above. Plan: Initiate daily beta kathy with Toprol 25mg given, continue Lotrel Patient to see primary manufacturing quality inspector to discuss indications for anticoagulation and treatment of paroxysmal atrial fibrillation on return to home Copy of records, ECHO to accompany patient on discharge González Cox MD (González Cox M.D.)
[2017-09-15] MEDS: METOPROLOL SUCC 25MG EXT REL TAB PO SCH (12:24)
[2017-09-15] MEDS ORDERED: TPRSR25 PO (14:42)
[2017-09-15] MEDS ORDERED: ENALAPRIL MALEATE 10 MG TAB PO STA (14:46)
--- NOTE | 2017-09-15 14:55 | Discharge Instructions ---
Discharge Instructions Date of Service Sep 15, 2017. Admission Reason for Admission: Syncope Discharge Discharge Diagnosis / Problem: GASTROENTERITIS -POSSIBLE VIRAL /SYNCOPE / CARDIAC ARRYTHMIA Discharge Goals Goal(s): Decrease discomfort, Improve function, Increase independence, Improve disease control, Diagnostic testing, Therapeutic intervention Activity Recommendations Activity Limitations: resume your previous activity . Instructions / Follow-Up Instructions / Follow-Up HOSPITAL FOLLOW UP WITH YOUR FAMILY PHYSICIAN IN A WEEK , PLEASE CALL OFFICE TO SCHEDULE APPOINTMENT PLEASE TAKE THE DISCHARGE INSTRUCTION AND COPY OF THE MEDICAL RECORDS ON YOUR OFFICE VISIT WASH YOUR HANDS WITH SOAP AND WATER PRIOR TO EACH MEALS AND AFTER USING REST ROOM LIMIT FIBER /DAIRY INTAKE IN NEXT 2-3 DAYS -MAY CAUSE ABDOMINAL BLOATING /LOOSE STOOL CT ABDOMEN /PELVIS SHOWS INCIDENTAL FINDING OF 3.7 CM ADRENAL NODULE ON RT WILL NEED DEDICATED CT SCAN TO ASSESS THE ADRENAL MASS NOTED TO HAVE BRIEF EPISODE OF ATRIAL FIBRILLATION WHILE IN HOSPITAL WHICH SPONTANEOUSLY CONVERTED BACK TO SINUS RHYTHM PLEASE FOLLOW UP WITH YOUR RECEIVING SPECIALIST DR ALEX BURKS IN 1-2 WEEKS WILL BENEFIT WITH CARDIAC MONITORING HOLTER /ZIO PATCH TO ASSESS CARDIAC ARRHYTHMIA DO NOT TAKE MOBIC -CAN CAUSE WORSENING OF YOUR KIDNEY FUNCTION AVOID ALEVE, NAPROXEN , ADVIL , IBUPROFEN, ADVIL , MOTRIN - AFFECTS YOUR KIDNEY FUNCTION CAN TAKE TYLENOL NEEDED FOR PAIN /FEVER Current Hospital Diet Patient's current hospital diet: AHA DIET Discharge Diet Recommended Diet: AHA Diet (Heart Healthy), Low Fiber Diet (FOR 2-3 DAYS ) Pending Studies Studies pending at discharge: no Medical Emergencies . Who to Call and When: Medical Emergencies: If at any time you feel your situation is an emergency, please call 911 immediately. . Non-Emergent Contact Non-Emergency issues call your: Primary Care Provider . . "Provider Documentation" section prepared by Sofia Palma. . VTE Core Measure Inpt VTE Proph given/why not?: Nancy Penny, SCD's
[2017-09-15] MEDS ORDERED: AMLODIPINE BESYLATE 5 MG TAB PO ONE (15:00)
--- NOTE | 2017-09-15 16:06 | Progress Note ---
Internal Med Progress Note Date of Service: Sep 15, 2017. Provider Documentation: SUBJECTIVE: no complain of abdominal pain , no nausea or vomiting tolerating diet well no bowel movement since admission denies of any complain of SOB , CONKLIN , palpitation or dizzy spell evaluated by Cardiology -brief episode of Afib last night noted on monitor at present normal sinus rhythm , no arrhythmia at present stable to be discharged pt will need to have follow up with her Cardiology after returned to her home town OBJECTIVE: Vital Signs-as noted below Exam: General-well appearing elderly female, no sign of distress Eyes-sclera non icteric, PERRLA/EOMI ENT-moist oral mucosa , normal oropharynx Neck-no thyromegaly , trachea midline Lungs-clear to auscultate, no wheeze or rales Heart-regular S1/S2 , no JVD , no lower ext edema Abdomen-soft, non tender, no lower ext edema Extremities-no rash or deformity Neuro-AAO x3, no focal neurological deficit Lab data as noted below. ASSESSMENT & PLAN: NAUSEA /VOMITING /DIARRHEA possible due to viral gastroenteritis stool C diff negative no evidence of sepsis , normal white count , no fever or chills CT abdomen/Pelvis :mild wall thickening of transverse colon and rectum , suggestive of colitis no bowel obstruction GI symptom has resolved in past few hours no episode of diarrhea no nausea /vomiting or abdominal pain tolerating diet well SYNCOPE : possible Vasovagal -with combination of ongoing GI symptoms /Dehydration ( hyperdynamic LV noted in ECHO ) no neurological deficit CT Head negative for CVA ECHO 09/15/17 : -no significant valvular pathology left ventricular cavity is small , There is moderate concentric left ventricular hypertrophy. Left ventricle is hyperdynamic , EF > 70 % no wall motion abnormality moderate aortic valve sclerosis , without significant aortic valvular stenosis there is mild mitral annular calcification , Trace mitral regurgitation awake and alert , oriented X3 no episode of dizzy spell or lightheadedness PAROXYSMAL AFIB : episode of Afib RVR note on monitor overnight -pt felt brief episode of palpitation /dizzy spell during that event Cardiology eval appreciate pt started on Toprol XL 25 mg daily pt will need to follow up with her Sausage Stuffer Dr Mike Pickens after retuning back home she will need property assessment monitor -Holter to assess PAF and needs to be evaluated by her rod mill tender for anticoagulation for stroke prophylaxis ( CHADS2 score 2/6, [id number] score 3 ) pt given CD copy of ECHO and medical records HTN : Pt is resumed on Lotrel ( Amlodipine 10 mg /Benazepril 20 mg ) daily added Toprol XL 25 mg daily for cardiac arrhythmia MALIHA ON CKD STAGE 3 due to dehydration , Nausea /vomiting diarrhea Cr improved to baseline with IV fluids pt is asked to avoid NSAID's INCIDENTAL FINDING OF RT ADRENAL NODULE : CT abdomen /pelvis shows incidental finding of indeterminate heterogenous soft tissue attenuating mass on the right adrenal gland measures up to 3.7 cm need further evaluation with CT adrenal protocol study pt is updated will be followed by her family physician as out patient DVT PROPHYLAXIS SCD and teds ambulate DISPOSITION stable to be discharged today pt is asked to follow up with her family physician after returning back to her home town Follow up with her own Sausage Stuffer in 1-2 weeks Vital Signs: Date Time Temp Pulse Resp B/P (MAP) Pulse Ox O2 Delivery O2 Flow Rate FiO2 09/15/17 15:46 89 145/73 (97) 09/15/17 15:32 37.1 88 20 92 Room Air 09/15/17 14:43 37.1 79 20 149/81 (103) 92 Room Air 83 167/80 (109) 88 181/75 (110) 09/15/17 12:17 36.7 77 20 147/75 (99) 90 Room Air 09/15/17 12:01 91 Room Air 09/15/17 08:00 91 Room Air 09/15/17 07:24 37.2 92 18 151/74 (99) 91 Room Air 98 148/77 (100) 104 151/80 (103) 09/15/17 04:17 36.8 102 22 144/77 (99) 92 Room Air 09/15/17 04:00 Room Air 09/15/17 01:25 Room Air 09/15/17 00:52 137/68 (91) 09/15/17 00:00 147/78 (101) 149/77 (101) 160/74 (102) 09/14/17 22:05 36.9 68 18 159/76 (103) 91 Room Air 09/14/17 21:39 68 16 145/71 93 09/14/17 21:15 71 18 92 09/14/17 21:01 155/80 09/14/17 21:00 69 15 92 09/14/17 20:56 74 150/73 78 148/72 84 170/75 09/14/17 19:11 36.7 66 18 135/68 94 Room Air 09/14/17 18:16 62 09/14/17 17:44 36.7 68 18 129/63 95 Room Air 75 137/64 82 150/64 09/14/17 17:43 95 Room Air 09/14/17 16:55 74 18 118/69 90 Room Air Lab Results: Results Past 24 Hours Test 09/14/17 17:24 09/14/17 17:30 09/14/17 18:10 09/15/17 01:39 Range/Units Bedside Glucose 95 70-90 mg/dl White Blood Count 7.19 9.75 4.8-10.8 K/uL Red Blood Count 4.63 4.35 4.2-5.4 M/uL Hemoglobin 14.3 13.3 12.0-16.0 g/dL Hematocrit 43.6 40.8 37-47 % Mean Corpuscular Volume 94.2 93.8 80-100 fL Mean Corpuscular Hemoglobin 30.9 30.6 25-34 pg Mean Corpuscular Hemoglobin Concent 32.8 32.6 32-36 g/dl Platelet Count 227 232 130-400 K/uL Mean Platelet Volume 9.8 9.6 7.4-10.4 fL Neutrophils (%) (Auto) 82.7 87.0 % Lymphocytes (%) (Auto) 10.2 7.3 % Monocytes (%) (Auto) 5.4 5.1 % Eosinophils (%) (Auto) 1.3 0.3 % Basophils (%) (Auto) 0.3 0.2 % Neutrophils # (Auto) 5.95 8.48 1.4-6.5 K/uL Lymphocytes # (Auto) 0.73 0.71 1.2-3.4 K/uL Monocytes # (Auto) 0.39 0.50 0.11-0.59 K/uL Eosinophils # (Auto) 0.09 0.03 0-0.5 K/uL Basophils # (Auto) 0.02 0.02 0-0.2 K/uL RDW Standard Deviation 46.3 46.3 36.4-46.3 fL RDW Coefficient of Variation 13.3 13.4 11.5-14.5 % Immature Granulocyte % (Auto) 0.1 0.1 % Immature Granulocyte # (Auto) 0.01 0.01 0.00-0.02 K/uL Prothrombin Time 10.7 9.0-12.0 SECONDS Prothromb Time International Ratio 1.0 0.9-1.1 Activated Partial Thromboplast Time 21.7 22.4 21.0-31.0 SECONDS Partial Thromboplastin Ratio 0.8 0.9 Sodium Level 141 142 136-145 mmol/L Potassium Level 3.7 3.4 3.5-5.1 mmol/L Chloride Level 107 110 98-107 mmol/L Carbon Dioxide Level 26 23 21-32 mmol/L Anion Gap 8.0 9.0 3-11 mmol/L Blood Urea Nitrogen 37 27 7-18 mg/dl Creatinine 1.34 0.89 0.60-1.20 mg/dl Est Creatinine Clear Calc Drug Dose 48.4 72.9 ml/min Estimated GFR () 45.4 74.5 Estimated GFR (Non- 39.2 64.3 BUN/Creatinine Ratio 27.3 30.8 10-20 Random Glucose 104 120 70-99 mg/dl Calcium Level 8.9 8.7 8.5-10.1 mg/dl Magnesium Level 2.6 2.3 1.8-2.4 mg/dl Total Bilirubin 0.4 0.2-1 mg/dl Direct Bilirubin < 0.1 0-0.2 mg/dl Aspartate Amino Transf (AST/SGOT) 20 15-37 U/L Alanine Aminotransferase (ALT/SGPT) 26 12-78 U/L Alkaline Phosphatase 72 45-117 U/L Troponin I < 0.015 < 0.015 0-0.045 ng/ml Total Protein 6.6 6.4-8.2 gm/dl Albumin 3.6 3.4-5.0 gm/dl Thyroid Stimulating Hormone (TSH) 2.220 0.300-4.500 uIu/ml Urine Color DK YELLOW Urine Appearance CLEAR CLEAR Urine pH 5.0 4.5-7.5 Urine Specific [place] 1.024 1.000-1.030 Urine Protein NEG NEG Urine Glucose (UA) NEG NEG Urine Ketones TRACE NEG Urine Occult Blood NEG NEG Urine Nitrite NEG NEG Urine Bilirubin NEG NEG Urine Urobilinogen NEG NEG Urine Leukocyte Esterase NEG NEG Microbiology Results 12/13/17 C.difficile Toxin B Gene (PCR) - Final, Complete No C. difficile toxin B gene detected
--- NOTE | 2017-09-15 16:47 | Progress Note ---
Progress Note Date of Service Sep 15, 2017. Progress Note ATTENDING ADDENDUM ; pt was being discharged this afternoon went to rest room for bowel movement -had passage of large amount of blood and clot mentions of having mild lower abdominal cramps no dizzy spell or lightheadedness vitals BP 139/65 ; HR 83 Temp 37.7 concern for GI bleed due to active colitis ordered for IV Cipro/Flagyl stool culture ordered check lactic acid pt was taking Mobic intermittently for back pain -IV Protonix gtt ordered cancel discharge home D/C Aspirin . Sub q heparin for DVT PPX monitor H&H Q12 hrs clear liq diet /NPO past midnight GI eval requested
[2017-09-15] MEDS ORDERED: PANTOprazole INJ 80 MG in DEXTROSE 5% 100ML IV SCH (17:15)
[2017-09-15] MEDS: CIPROFLOXACIN / D5W 400 MG in PREMIXED IN D5W 200 ML IV SCH (17:25)
[2017-09-15] MEDS: METRONIDAZOLE / NSS 500 MG in PREMIXED NSS 100 ML IV SCH ×2 (17:25→23:49)
[2017-09-15 19:15] LABS: HEMATOCRIT 38.8 % (37-47)
[2017-09-15] MEDS: PANTOprazole INJ 40 MG in DEXTROSE 5% 100ML IV SCH ×2 (19:34→23:48)
[2017-09-15] MEDS ORDERED: BENAZEPRIL PO SCH (21:00)
[2017-09-15] MEDS ORDERED: AMLODIPINE PO SCH (21:00)
[2017-09-15] MEDS: ACETAMINOPHEN 325 MG TAB PO PRN (23:48)
[2017-09-16 01:12] VITALS: BP 129/71; PULSE 78; TEMP 37.3; O2SAT 92
[2017-09-16 04:00] VITALS: BP 150/80; PULSE 76; TEMP 36.9; O2SAT 90
[2017-09-16] MEDS: PANTOprazole INJ 40 MG in DEXTROSE 5% 100ML IV SCH ×2 (04:40→09:51)
[2017-09-16] MEDS: CIPROFLOXACIN / D5W 400 MG in PREMIXED IN D5W 200 ML IV SCH (04:42)
[2017-09-16 07:02] LABS: HEMATOCRIT 40.2 % (37-47)
[2017-09-16 07:30] VITALS: BP_SYST 126; BP_SYST 137; BP_SYST 159; BP_DIAS 77; BP_DIAS 78; PULSE 75; PULSE 77; TEMP 37; O2SAT 90
[2017-09-16] MEDS ORDERED: POTASSIUM CHLORIDE 20 MEQ TABCR PO STA (07:49)
[2017-09-16] MEDS ORDERED: AMLODIPINE BESYLATE 5 MG TAB PO SCH (09:00)
[2017-09-16] MEDS: LACTOBACILLUS ACIDOPHILUS (FLORANEX) TAB PO SCH ×2 (09:09→12:04)
[2017-09-16] MEDS: FLUTICASONE PROPIONATE NA SPR 16 GM BTL NAE SCH (09:11)
[2017-09-16] MEDS: METOPROLOL SUCC 25MG EXT REL TAB PO SCH (09:11)
[2017-09-16] MEDS: METRONIDAZOLE / NSS 500 MG in PREMIXED NSS 100 ML IV SCH (09:11)
--- NOTE | 2017-09-16 10:26 | Cardiology Follow-Up ---
Subjective General Date of Service: Sep 16, 2017. Chief Complaint: PAF Pt evaluation today including: conversation w/ patient, physical exam, chart review, lab review, review of studies, review of inpatient medication list History of Present Illness Patient seen and examined. Chart, medications, and telemetry reviewed. Prior to discharge yesterday afternoon the patient experienced a large bloody bowel movement prompting further inpatient evaluation and treatment. No near syncope or syncope. Denies chest pain, palpitations, or dyspnea. No orthopnea or PND. Telemetry: Sinus in the 70's. No recurrent episodes of atrial fibrillation. No significant bradycardia or pauses. Allergies Coded Allergies: Morphine and Related (Verified Adverse Reaction, Intermediate, NAUSEA, VOMITING, 09/14/17) Social History Hx Tobacco Use In Past Year?: No Hx Alcohol Use - Type And Amou: No Hx Substance Use - Type And Am: No Problem List Medical Problems: (1) Acute electrocardiogram changes Status: Acute (2) Colitis Status: Acute Physical Exam Vital Signs Last Vital Signs Documentation Date Time Temp Pulse Resp B/P (MAP) Pulse Ox O2 Delivery O2 Flow Rate FiO2 09/16/17 07:30 37.0 77 20 137/78 (97) 90 Room Air 75 126/77 (93) 75 159/78 (105) Physical Exam Constitutional: Level of Distress: NAD Psychiatric: Mental Status: active & alert Orientation: to time, to place, to person Memory: recent memory normal, remote memory normal Head: normocephalic, atraumatic Eyes: Pupils: PERRLA Neck: pertinent finding (Normal JVP) Lungs: Respiratory effort: no dyspnea Auscultation: breath sounds normal, no wheezing, no rales/crackles, no rhonchi Cardiovascular: Heart Auscultation: RRR (74 bpm), normal S1, normal S2, no rubs, no gallops , II/ ERIN Peripheral Pulses: Radial Pulse: normal on the left, normal on the right Dorsalis Pedis Pulse: normal on the left, normal on the right Abdomen: Bowel Sounds: normal Inspection & Palpation: soft, non-distended, no masses Extremities: no cyanosis, no edema, no clubbing Neurologic: Cranial Nerves: grossly intact Assessment and Plan Assessment and Plan Admission following a syncope event beginning initially with GI upset after a heavy meal. Suspect vasovagal syncope episode. Symptomatic paroxysmal atrial fibrillation on the first hospital night, in the setting of significant GI distress, hypokalemia, and off CPAP, with spontaneous conversion back to sinus rhythm without clinical sequela CHADS2 Score 2/6, [id number] Score: 3 points Echo with normal to hyperdynamic LV function with LVH. RECOMMENDATIONS/PLAN: Continue Toprol XL, 25 mg/day. Currently, risks of anticoagulation therapy are felt to be greater than the benefits. Continue Lotrel for blood pressure control. Patient advised to follow-up with her outpatient Penal Officer shortly after discharge Will sign off. Please call if any questions or concerns. Patient seen and examined, assessment as above González Cox MD Laboratory Results Last 24 Hours Test 09/15/17 19:01 09/16/17 06:46 Hemoglobin 12.6 g/dL 13.1 g/dL Hematocrit 38.8 % 40.2 % Lactic Acid Level 1.2 mmol/L
[2017-09-16] MEDS: ACETAMINOPHEN 325 MG TAB PO PRN (10:56)
--- NOTE | 2017-09-16 10:58 | Gastrointestinal Consultation ---
Gastrointestinal Consultation Date of Consultation: Sep 16, 2017 Attending Physician: Louie Consulting Physician: Kanwal Reason for Consultation: abd pain, rectal bleeding History of Present Illness Patient is a 72 year old female w/ history of HTN, colonic polyps and history of large colonic mass s/p resection w/ partial colectomy who presented through the ED following a syncopal episode on 09/14/17 - GI was consulted for rectal bleeding on 09/16/17. Pt was seen and evaluated, chart reviewed. Pt notes she is in town visiting a grandson at [employer]. They had some lunch out on 09/14/17. She notes after lunch she had some abdominal cramping w/ nausea. Had a sudden urge to have a BM, and felt better. Was planning on driving home when she notes abdominal cramping came back, she became flushed, lighthead and dizzy and had a brief syncopal episode and was taken to the ED. She notes since has be been admitted, she has had mild abdominal cramping with loose stools. Was to get discharged yesterday, prior to discharge had abdominal cramping and return of BRBPR. Pt notes no BM since this episodes. This AM, she continues to have lower abdominal cramping and discomfort w/ mild nausea, no vomiting. Last BM was yesterday. She has not had any rectal bleeding since yesterday. No melena. No hematemesis, coffee ground emesis. Stool culture is yet to be obtained, but c.diff negative. CT on admission suggestive of colitis. She is due for a Colonoscopy for colon CA screening. This AM, denies fever, chills, CP, SOB. VSS. No leukocytosis, H&H stable, BUN/WINDOW TRIMMER improving since admission with BUN 27 WINDOW TRIMMER 0.9 Sick contacts: none Well water: none NSAIDs: few times a week Stool culture: not obtained C.diff 09/14/17: negative CT ABD/Pelvis 09/14/17: Mild wall thickening of the transverse colon and rectum suggests colitis. The colon is diffusely fluid-filled suggesting diarrheal state. No bowel obstruction Indeterminate heterogeneous soft tissue attenuating mass of the right adrenal gland measures up to 3.7 cm. This could be further evaluated with a CT adrenal protocol study if clinically indicated. Multiple fat filled ventral abdominal wall hernias with an infraumbilical fat filled hernia also containing nonobstructed small bowel. Prior hysterectomy with small cystocele Past Medical/Surgical History Medical Problems: (1) Acute electrocardiogram changes Status: Acute (2) Colitis Status: Acute Past Medical History: HTN, hyperlipidemia, sleep apnea, colonic polyps, colonic mass Past Surgical History: partial colectomy for colon mass, appendectomy, hysterectomy, EGD, Colonoscopy Allergies Coded Allergies: Morphine and Related (Verified Adverse Reaction, Intermediate, NAUSEA, VOMITING, 09/14/17) Current Medications Home Meds and Scripts Medications Dose Route/Sig Max Daily Dose Days Date Category Dose Instructions Metoprolol Succinate ER (Metoprolol Succinate) 25 Mg Tabcr 25 Mg PO QAM 30 09/15/17 Rx Drisdol (Ergocalciferol) 50,000 Unit Cap 50,000 Units PO WK 09/14/17 Reported SUNDAYS Flonase Allergy Relief (Fluticasone Propionate (Nasal)) 50 Mcg/Act Spr 1 [place] RICCARDO DAILY PRN 09/14/17 Reported Aspirin Ec (Aspirin) 81 Mg Tab 81 Mg PO QAM 09/14/17 Reported Crestor (Rosuvastatin Calcium) 40 Mg Tab 40 Mg PO DAILY 09/14/17 Reported Lotrel 10MG/20MG (Amlodipine/Benazepril HCl) 10 Mg/20 Mg Cap 1 Cap PO DAILY 09/14/17 Reported Review of Systems Constitutional: No fever, No chills Respiratory: No cough, No shortness of breath Cardiac: No chest pain Abdomen: + pain, + nausea, No vomiting, No diarrhea (last episode yesterday), No constipation, No GI bleeding (last episode yesterday) Physical Exam Date Time Temp Pulse Resp B/P (MAP) Pulse Ox O2 Delivery O2 Flow Rate FiO2 09/16/17 08:00 Room Air 09/16/17 07:30 37.0 77 20 137/78 (97) 90 Room Air 75 126/77 (93) 75 159/78 (105) 09/16/17 04:00 Room Air 09/16/17 04:00 36.9 76 18 150/80 (103) 90 Room Air 09/16/17 01:12 37.3 78 129/71 (90) 92 Room Air 09/16/17 00:00 Room Air 09/15/17 23:40 37.0 81 18 161/75 (103) 91 Room Air 09/15/17 20:00 Room Air 09/15/17 16:00 37.7 83 18 139/65 (89) 90 Room Air 09/15/17 16:00 90 Room Air 09/15/17 15:46 89 145/73 (97) 09/15/17 15:32 37.1 88 20 92 Room Air 09/15/17 14:43 37.1 79 20 149/81 (103) 92 Room Air 83 167/80 (109) 88 181/75 (110) 09/15/17 12:17 36.7 77 20 147/75 (99) 90 Room Air 09/15/17 12:01 91 Room Air General Appearance: no apparent distress Eyes: PERRL ENT: hearing grossly normal Neck: supple Respiratory/Chest: normal breath sounds, no respiratory distress Cardiovascular: regular rate, rhythm Abdomen: normal bowel sounds, non tender, soft, no organomegaly Neurologic/Psych: alert, normal mood/affect, oriented x 3 Skin: normal color, no jaundice Laboratory Results Last 24 Hours Test 09/15/17 19:01 09/16/17 06:46 Hemoglobin 12.6 g/dL 13.1 g/dL Hematocrit 38.8 % 40.2 % Lactic Acid Level 1.2 mmol/L Impression Patient is a 72 year old female w/ history of large colon polyp s/p partial colectomy who presented through the ED following a syncopal episode, has had lower abdominal cramping w/ intermittent rectal bleeding since syncopal episode. VSS, H&H stable, BUN/WINDOW TRIMMER elevated on admission but improving. On NSAIDs intermittently, not daily. No melena. CT w/ colitis, no history of liver disease. Differentials, UGI (gastritis, PUD) vs UGIB (infectious, diverticular, ischemic). She likely has ischemic colitis following syncopal episode, will need stool culture to rule out infectious source. Agree with PPI. Plan - C.diff negative - Follow up stool culture - Follow up stool H.pylori - Trend H&H - Monitor stools - Transfuse PRN - PPI 20 mg BID - Bentyl 10 mg TID for abdominal pain or cramping - Will need outpatient GI follow up at home w/ Colonoscopy in 4-6 weeks GI will follow. Please call with any question, concerns, acute changes. Thank you!
[2017-09-16 11:44] VITALS: BP 131/73; PULSE 73; PULSE 91; TEMP 37.2; O2SAT 91
[2017-09-16 12:37] VITALS: BP 131/73; PULSE 91; TEMP 37.2; O2SAT 91
[2017-09-16 14:52] VITALS: BP_SYST 120; BP_SYST 122; BP_SYST 147; BP_DIAS 74; BP_DIAS 77; BP_DIAS 83; PULSE 72; TEMP 36.7; O2SAT 92
[2017-09-16] MEDS ORDERED: DiphenhydrAMINE 2%/ZINC 0.1% CREAM 28GM TUBE EXT ONE (15:45)
--- NOTE | 2017-09-16 18:29 | Discharge Summary ---
Discharge Summary Date of Service Sep 16, 2017. Discharge Summary Admission Date: Sep 14, 2017 at 21:02 Discharge Date: Sep 16, 2017 Discharge Disposition: Home Principal Diagnosis: Discharge Discharge Diagnosis / Problem: GASTROENTERITIS -POSSIBLE VIRAL /SYNCOPE / CARDIAC ARRYTHMIA Procedures: ECHO 09/15/17 : The left ventricular cavity is small. There is moderate concentric left ventricular hypertrophy. The left ventricle is hyperdynamic. The left ventricular wall motion is normal. Ejection Fraction = >70 %. Aortic valve sclerosis moderate, without significant aortic valvular stenosis. There is mild mitral annular calcification. There is trace mitral regurgitation. CT ABDOMEN /PELVIS 1. Mild wall thickening of the transverse colon and rectum suggests colitis. The colon is diffusely fluid-filled suggesting diarrheal state. 2. No bowel obstruction. 3. Indeterminate heterogeneous soft tissue attenuating mass of the right adrenal gland measures up to 3.7 cm. This could be further evaluated with a CT adrenal protocol study if clinically indicated. 4. Multiple fat filled ventral abdominal wall hernias with an infraumbilical fat filled hernia also containing nonobstructed small bowel. 5. Prior hysterectomy with small cystocele. CHEST XRAY : IMPRESSION: 1. Cardiomegaly without overt pulmonary edema. 2. Linear subsegmental bibasilar opacities suggest atelectasis. Consultations: CARDIOLOGY [facility] Medication Reconciliation New Medications: Metoprolol Succinate (Metoprolol Succinate ER) 25 Mg Tabcr 25 MG PO QAM for 30 Days, #30 TABS 2 Refills Continued Medications: Amlodipine/Benazepril (Lotrel 10MG/20MG) 10 Mg/20 Mg Cap 1 CAP PO DAILY Aspirin (Aspirin Ec) 81 Mg Tab 81 MG PO QAM Ergocalciferol (Drisdol) 50,000 Unit Cap 74657 UNITS PO WK SUNDAYS Fluticasone Propionate (Nasal) (Flonase Allergy Relief) 50 Mcg/Act Spr 1 SPRAY RICCARDO DAILY PRN for ALLERGIES Rosuvastatin Calcium (Crestor) 40 Mg Tab 40 MG PO DAILY Discontinued Medications: Meloxicam (Mobic) 7.5 Mg Tab 7.5 MG PO DAILY Admission Information HPI (per Admitting provider): DATE OF ADMISSION: 09/14/2017 PRIMARY CARE PHYSICIAN: Dr. Crouch from [place], [place]. CHIEF COMPLAINT: Syncope. HISTORY OF PRESENT ILLNESS: History obtained from the patient, family, ER provider. Medical history significant for hypertension, hyperlipidemia, LITO on CPAP Patient traveled from [facility] to [place] to drop off grandson in college with daughter. This morning px noted abdominal discomfort, cramping, had some nausea, no vomiting, loose stools noted. Patient also felt lightheaded, dizzy. No chest pain, no shortness of breath, no headache. Witnessed syncopal event for about 45 seconds by daughter in the car. No seizures, no incontinence. No previous episodes in the past. Recent antibiotic intake last month for some URTI. Emesis, multiple nonbloody bowel movements at the ER. MEDICAL HISTORY: As above. SURGERIES: Bowel surgery, hysterectomy, appendectomy. HOME MEDICATIONS: Include aspirin, Lotrel, Drisdol, Flonase, Mobic, Crestor. ALLERGIES: MORPHINE. FAMILY HISTORY: Heart disease. PERSONAL SOCIAL HISTORY: Nonsmoker, no chronic intake of alcoholic beverages. Retired teacher. REVIEW OF SYSTEMS: As per HPI. All 10 systems reviewed. All other ROS negative. Physical Exam (per Admitting): PHYSICAL EXAMINATION: VITAL SIGNS: Blood pressure was noted to be 135/68, pulse rate 80, RR 18, temperature 36.7, sats 94 on room air. Orthostatic vitals were negative. GENERAL: Noted to be obese, slightly uncomfortable, no respiratory distress. SKIN: Normal color. Warm. HEENT: [employer] palpebral conjuctivae. No ptosis. Dry buccal mucosa. NECK: Short neck. No tenderness. CHEST: Clear to auscultate. No tenderness. HEART: RRR, no murmur. ABDOMEN: Soft, nontender, some distention. EXTREMITIES: No LE edema. No tenderness. No gross deformity. NEUROLOGIC: Coherent. No gross focality. Hospital Course no further episode of GI bleed note over night and in AM did not had any bowel movement no dizzy spell or lightheadedness no arrhythmia noted on overnight tele labs and vitals remains stable and unchanged P/E: Exam: General-well appearing elderly female, no sign of distress Eyes-sclera non icteric, PERRLA/EOMI ENT-moist oral mucosa , normal oropharynx Neck-no thyromegaly , trachea midline Lungs-clear to auscultate, no wheeze or rales Heart-regular S1/S2 , no JVD , no lower ext edema Abdomen-soft, non tender, no lower ext edema Extremities-no rash or deformity Neuro-AAO x3, no focal neurological deficit ASSESSMENT AND PLAN EPISODE OF GI BLEED /BLOOD PER RECTUM : had one episode of blood per rectum yesterday discharge was kept on hold no further episode of bowel movement HB remains stable 13 .4 , stable vitals lactic acid wnl appreciate input form GI no further intervention needed -as not further GI bleeding noted diet ordered stable to be discharged home will need to follow up with Colonoscopy as an out pt in few weeks NAUSEA /VOMITING /DIARRHEA symptomatically resolved tolerating diet no episode of diarrhea , no nausea vomiting possible due to viral gastroenteritis stool C diff negative no evidence of sepsis , normal white count , no fever or chills CT abdomen/Pelvis :mild wall thickening of transverse colon and rectum , suggestive of colitis no bowel obstruction stable to be discharged home today SYNCOPE : no episode of dizzy spell or lightheadedness no arrhythmia noted on tele overnight presented with syncope possible Vasovagal -with combination of ongoing GI symptoms /Dehydration ( hyperdynamic LV noted in ECHO ) no neurological deficit CT Head negative for CVA ECHO 09/15/17 : -no significant valvular pathology left ventricular cavity is small , There is moderate concentric left ventricular hypertrophy. Left ventricle is hyperdynamic , EF > 70 % no wall motion abnormality moderate aortic valve sclerosis , without significant aortic valvular stenosis there is mild mitral annular calcification , Trace mitral regurgitation awake and alert , oriented X3 no episode of dizzy spell or lightheadedness no other imaging or testing needed PAROXYSMAL AFIB : no further episode noted after starting on beta kathy noted episode of Afib RVR note on monitor 1 day before -pt felt brief episode of palpitation /dizzy spell during that event Cardiology eval appreciate pt started on Toprol XL 25 mg daily pt will need to follow up with her Commercial Insurance Underwriter Dr Mike Burks after retuning back home she will need satellite project site monitor -Holter to assess PAF pt given CD copy of ECHO and medical records HTN : BP stable Pt is resumed on Lotrel ( Amlodipine 10 mg /Benazepril 20 mg ) daily added Toprol XL 25 mg daily for cardiac arrhythmia MALIHA ON CKD STAGE 3 resolved due to dehydration , Nausea /vomiting diarrhea Cr improved to baseline with IV fluids pt is asked to avoid NSAID's INCIDENTAL FINDING OF RT ADRENAL NODULE : CT abdomen /pelvis shows incidental finding of indeterminate heterogenous soft tissue attenuating mass on the right adrenal gland measures up to 3.7 cm need further evaluation with CT adrenal protocol study pt is updated will be followed by her family physician as out patient DVT PROPHYLAXIS SCD and teds ambulate DISPOSITION stable to be discharged today pt is asked to follow up with her family physician after returning back to her home town Follow up with her own Commercial Insurance Underwriter in 1-2 weeks Discharge Instructions Discharge Instructions Date of Service Sep 15, 2017. Admission Reason for Admission: Syncope Discharge Discharge Diagnosis / Problem: GASTROENTERITIS -POSSIBLE VIRAL /SYNCOPE / CARDIAC ARRYTHMIA Discharge Goals Goal(s): Decrease discomfort, Improve function, Increase independence, Improve disease control, Diagnostic testing, Therapeutic intervention Activity Recommendations Activity Limitations: resume your previous activity . Instructions / Follow-Up Instructions / Follow-Up HOSPITAL FOLLOW UP WITH YOUR FAMILY PHYSICIAN IN A WEEK , PLEASE CALL OFFICE TO SCHEDULE APPOINTMENT PLEASE TAKE THE DISCHARGE INSTRUCTION AND COPY OF THE MEDICAL RECORDS ON YOUR OFFICE VISIT WASH YOUR HANDS WITH SOAP AND WATER PRIOR TO EACH MEALS AND AFTER USING REST ROOM LIMIT FIBER /DAIRY INTAKE IN NEXT 2-3 DAYS -MAY CAUSE ABDOMINAL BLOATING /LOOSE STOOL CT ABDOMEN /PELVIS SHOWS INCIDENTAL FINDING OF 3.7 CM ADRENAL NODULE ON RT WILL NEED DEDICATED CT SCAN TO ASSESS THE ADRENAL MASS NOTED TO HAVE BRIEF EPISODE OF ATRIAL FIBRILLATION WHILE IN HOSPITAL WHICH SPONTANEOUSLY CONVERTED BACK TO SINUS RHYTHM PLEASE FOLLOW UP WITH YOUR BENCH WORKER HELPER DR MIKE BURKS IN 1-2 WEEKS WILL BENEFIT WITH CARDIAC MONITORING HOLTER /ZIO PATCH TO ASSESS CARDIAC ARRHYTHMIA DO NOT TAKE MOBIC -CAN CAUSE WORSENING OF YOUR KIDNEY FUNCTION AVOID ALEVE, NAPROXEN , ADVIL , IBUPROFEN, ADVIL , MOTRIN - AFFECTS YOUR KIDNEY FUNCTION CAN TAKE TYLENOL NEEDED FOR PAIN /FEVER Current Hospital Diet Patient's current hospital diet: AHA DIET Discharge Diet Recommended Diet: AHA Diet (Heart Healthy), Low Fiber Diet (FOR 2-3 DAYS ) Pending Studies Studies pending at discharge: no Medical Emergencies . Who to Call and When: Medical Emergencies: If at any time you feel your situation is an emergency, please call 911 immediately. . Non-Emergent Contact Non-Emergency issues call your: Primary Care Provider . . "Provider Documentation" section prepared by Sofia Palma. . VTE Core Measure Inpt VTE Proph given/why not?: Nancy Penny, SCD's
== END 2017-09-16 16:28 | disposition home or self-care (01) ==
LOC: EDBD 16:32 → C.EDB 16:33 → EDSEX 16:33 → C.MED 21:02 → ENRESERV 21:14
PROVIDERS: ADMIT Hospitalist; ATTEND Hospitalist
DX: R55 Syncope and collapse (principal); K52.9 Noninfective gastroenteritis and colitis, unspecified; N17.9 Acute kidney failure, unspecified; Z79.82 Long term (current) use of aspirin; Z79.899 Other long term (current) drug therapy; I12.9 Hypertensive chronic kidney disease with stage 1 through stage 4 chronic kidney disease, or unspecified chronic kidney disease; E78.5 Hyperlipidemia, unspecified; G47.33 Obstructive sleep apnea (adult) (pediatric); I48.0 Paroxysmal atrial fibrillation; N18.3 Chronic kidney disease, stage 3 (moderate); E27.9 Disorder of adrenal gland, unspecified